=== PATIENT | male | born 1975 | race African-American/Black ===

== ENCOUNTER 2018-10-09 12:22 | Emergency (ER) | payer OTHER, SELFPAY ==
[2018-10-09] MEDS ORDERED: cloNIDine 0.2 MG TAB ONE (12:45)
--- NOTE | 2018-10-09 13:14 | CT ---
CT BRAIN WITHOUT CONTRAST: Date: 10/09/18 HISTORY: Trauma. No loss of consciousness. Headache. FINDINGS: No evidence of infarct, hemorrhage, midline shift, or abnormal extra-axial fluid collections are seen . The ventricular size is normal and the basilar cisterns are patent. The bony calvarium is intact. T here is minimal mucosal disease in the paranasal sinuses. IMPRESSION: No CT evidence of acute intracranial process. POS: OFF
--- NOTE | 2018-10-09 13:16 | CT ---
CT CERVICAL SPINE WITH CORONAL AND SAGITTAL REFORMATIONS: HISTORY: Trauma, fall, neck pain. FINDINGS/IMPRESSION: There is loss of cervical lordosis with mild reversal. Mild degenerative changes are present. No fr acture, subluxation, or facet malalignment is identified. POS: OFF
[2018-10-09] MEDS ORDERED: Ketorolac Tromethamine 60 MG/2 ML VIAL ONE (13:21)
[2018-10-09] MEDS ORDERED: Orphenadrine Citrate 60 MG/2 ML VIAL ONE (13:21)
[2018-10-09] MEDS ORDERED: Furosemide 40 MG/4 ML VIAL ONE (14:26)
[2018-10-09] MEDS ORDERED: hydrALAZINE 20 MG/ML VIAL ONE (14:28)
[2018-10-09 14:42] LABS: Anion Gap 14 mmol/L (10-20); BUN (Urea Nitrogen) 26 mg/dL (8.9-20.6); Calc. Creatinine Clearance 0 mL/min (70-130); Carbon Dioxide 23 mmol/L (22-29); Chloride 104 mmol/L (98-107); Estimated GFR-MDRD 39; Glucose 97 mg/dL (70-105); Potassium 4.3 mmol/L (3.5-5.1); Sodium 137 mmol/L (136-145)
== END 2018-10-09 15:30 | disposition home or self-care (01) ==
LOC: NAV ERS 12:22
DX: S00.03XA Contusion of scalp, initial encounter (principal); I10 Essential (primary) hypertension; M54.2 Cervicalgia; W20.8XXA Other cause of strike by thrown, projected or falling object, initial encounter
CPT/HCPCS: 70450; 72125; 80048; 96372; 96374; 96375; J0360; J1885; J1940; J2360

== ENCOUNTER 2020-01-19 19:30 | Emergency (ER) | payer SELFPAY ==
[2020-01-19] MEDS ORDERED: Ketorolac Tromethamine 60 MG/2 ML VIAL ONE (19:53)
[2020-01-19] MEDS ORDERED: Orphenadrine Citrate 60 MG/2 ML VIAL ONE (19:53)
--- NOTE | 2020-01-19 20:44 | RAD ---
LUMBAR SPINE: 01/19/20 HISTORY: Injury. FINDINGS: The lumbar vertebrae maintain height and alignment. There are degenerative changes present. Moderate degenerative spurring from the anterior and lateral lumbar vertebrae. Degenerative disc changes at L3 -4 with vacuum phenomenon and loss of disc space. No evidence of spondylolisthesis or spondylolysis. No acute compression deformity. IMPRESSION: Moderate degenerative changes of the lumbar spine. POS: [facility]
== END 2020-01-19 20:55 | disposition home or self-care (01) ==
LOC: NAV ERS 19:30
DX: M54.5 Low back pain (principal); I10 Essential (primary) hypertension; Z79.899 Other long term (current) drug therapy; X50.1XXA Overexertion from prolonged static or awkward postures, initial encounter
CPT/HCPCS: 72100; 96372; J1885; J2360

== ENCOUNTER 2022-07-13 13:10 | Emergency (ER) | payer SELFPAY ==
[2022-07-13 13:37] LABS: #Basophils 0.1 thou/uL (0.0-0.2); #Eosinphils 0.1 thou/uL (0.0-0.7); #Lymphocytes 2.6 thou/uL (1.20-3.40); #Monocytes 1.4 thou/uL (0.11-0.59); #Neutrophils 7.3 thou/uL (1.40-6.50); %Basophils 1.3 % (0.0-1.0); %Eosinophils 0.8 % (0.0-10.0); %Lymphocytes 22.3 % (21.0-51.0); %Monocytes 11.8 % (0.0-10.0); %Neutrophils 63.8 % (42.0-75.0); Hemoglobin 13.2 g/dL (14.0-18.0); Mean Corpuscular HGB CONC 31.5 g/dL (32.0-36.0); Mean Corpuscular Hemoglobin 27.3 pg (27.0-31.0); Mean Corpuscular Volume 86.9 fl (78.0-98.0); Mean Platelet Volume 7.6 fL (7.4-10.4); Platelet Count 294 10x3/uL (130-400); RBC Distribution Width 13.5 % (11.5-14.5); Red Blood Cell (RBC) Count 4.84 mill/uL (4.70-6.10); White Blood Cell (WBC) Count 11.5 10x3/uL (4.8-10.8)
[2022-07-13 13:52] LABS: ALT (SGPT) 16 U/L (8-55); AST (SGOT) 14 U/L (5-34); Albumin 4.1 g/dL (3.5-5.0); Alkaline Phosphatase 51 U/L (40-110); Anion Gap 19 mmol/L (10-20); BUN (Urea Nitrogen) 22 mg/dL (8.9-20.6); Bilirubin, Total 0.5 mg/dL (0.2-1.2); Calc. Creatinine Clearance 0 mL/min (70-130); Calcium 9.1 mg/dL (7.8-10.44); Carbon Dioxide 24 mmol/L (22-29); Chloride 98 mmol/L (98-107); Estimated GFR 35; Globulin 3.1 g/dL (2.4-3.5); Glucose 125 mg/dL (70-105); Lipase 27 U/L (8-78); Potassium 3.6 mmol/L (3.5-5.1); Protein, Total 7.2 g/dL (6.0-8.3); Sodium 137 mmol/L (136-145)
[2022-07-13] MEDS ORDERED: Aspirin Chewable 81 MG TAB ONE (13:53)
[2022-07-13] MEDS ORDERED: Ibuprofen 200 MG TAB ONE (13:53)
[2022-07-13] MEDS ORDERED: Morphine 4 MG/ML VIAL ONE (15:14)
[2022-07-13] MEDS ORDERED: Promethazine HCl 25 MG/ML VIAL ONE (15:15)
[2022-07-13 16:52] LABS: Troponin I Less than 0.010 ng/mL (< 0.028)
== END 2022-07-13 17:50 | disposition home or self-care (01) ==
LOC: NAV ERS 13:10
DX: R07.9 Chest pain, unspecified (principal); M77.12 Lateral epicondylitis, left elbow; I10 Essential (primary) hypertension; Z79.899 Other long term (current) drug therapy
CPT/HCPCS: 71045; 80053; 83690; 84484; 85025; 93005; 96372; J2270; J2550